=== PATIENT | female | born 1970 | race African-American/Black ===

== ENCOUNTER 2020-01-17 14:44 | Observation (INO) ==
[2020-01-17] MEDS ORDERED: Aspirin 81 MG TAB.CHEW PO ONE (14:52)
[2020-01-17] MEDS ORDERED: Nitroglycerin 0.4 MG TAB.SUBL SL PRN (14:52)
[2020-01-17 15:54] LABS: Basophils % 0.2 %; Eosinophils # 0.1 K/mcL (0.0-0.6); Eosinophils % 0.4 %; Hematocrit 37.6 % (35.3-44.9); Hemoglobin 11.6 g/dL (11.5-15.4); Immature Granulocytes % 0.5 % (0-4); Lymphocytes # 4.9 K/mcL (0.6-4.6); Lymphocytes % 33.1 %; Mean Corpuscular HGB Conc 30.9 g/dL (31.6-35.5); Mean Corpuscular Volume 97.2 fL (83.0-100.0); Mean Platelet Volume 10.8 fL (9.4-12.4); Monocytes # 0.4 K/mcL (0.0-1.3); Monocytes % 2.7 %; Neutrophils # 9.3 K/mcL (1.6-8.9); Platelet Count 225 K/mcL (140-400); Red Blood Count 3.87 M/mcL (3.82-4.97); Red Cell Distribution Width 13.9 % (11.5-14.5); Segmented Neutrophils % 63.1 %; White Blood Count 14.7 K/mcL (4.3-11.1)
[2020-01-17 15:58] LABS: INR 0.9; Prothrombin Time 10.2 Seconds (9.4-12.1)
[2020-01-17 16:01] LABS: Activated Partial Thrombo Time 26.3 Seconds (26.0-36.0)
[2020-01-17 16:15] LABS: BUN/Creatinine Ratio 10 (6-26); Blood Urea Nitrogen 9 mg/dL (6-20); Calcium 9.7 mg/dL (8.6-10.3); Carbon Dioxide 23 mEq/L (23-29); Chloride 110 mEq/L (98-107); Glucose 94 mg/dL (70-105); Osmolality,Calculated 290 (280-300); Potassium 3.8 mEq/L (3.5-5.1); Sodium 141 mEq/L (136-145); eGFR For African Americans > 60 (> 60); eGFR For Non-African Americans > 60 (> 60)
[2020-01-17 16:16] LABS: Troponin I < 0.03 ng/mL (< 0.04)
[2020-01-17] MEDS ORDERED: Lidocaine 1% 20 ML MDV INFILT ONE (17:11)
[2020-01-17] MEDS ORDERED: Naloxone 0.4 MG/ML INJ IVP PRN (17:21)
[2020-01-17] MEDS ORDERED: Ondansetron ODT 4 MG TAB.RAPDIS SL PRN (17:21)
[2020-01-17 17:48] LABS: Magnesium 1.9 mg/dL (1.6-2.6)
[2020-01-17] MEDS ORDERED: Promethazine Syrup 6.25 MG/5 ML PO PRN (18:45)
[2020-01-17] MEDS: ALPRAZolam 1 MG TABLET PO SCH (19:48)
[2020-01-17] MEDS: *HR* OxyCODONE Immed Rel 5 MG TABLET PO PRN (19:49)
[2020-01-17] MEDS ORDERED: Lidocaine Jelly 6ml 1 APPL/6 ML JEL.PF.APP TP ONE (22:11)
[2020-01-18] MEDS: *HR* Heparin 5,000 UNIT/ML VIAL SQ SCH ×2 (05:28→17:59)
[2020-01-18 05:56] LABS: Hematocrit 34.6 % (35.3-44.9); Hemoglobin 10.9 g/dL (11.5-15.4); Mean Corpuscular HGB Conc 31.5 g/dL (31.6-35.5); Mean Corpuscular Hemoglobin 30.5 pg (28.0-33.3); Mean Corpuscular Volume 96.9 fL (83.0-100.0); Mean Platelet Volume 10.5 fL (9.4-12.4); Platelet Count 220 K/mcL (140-400); Red Blood Count 3.57 M/mcL (3.82-4.97); White Blood Count 12.2 K/mcL (4.3-11.1)
[2020-01-18 06:17] LABS: BUN/Creatinine Ratio 20 (6-26); Blood Urea Nitrogen 16 mg/dL (6-20); Calcium 9.1 mg/dL (8.6-10.3); Carbon Dioxide 25 mEq/L (23-29); Chloride 110 mEq/L (98-107); Glucose 96 mg/dL (70-105); Osmolality,Calculated 289 (280-300); Potassium 4.1 mEq/L (3.5-5.1); Sodium 139 mEq/L (136-145); eGFR For African Americans > 60 (> 60); eGFR For Non-African Americans > 60 (> 60)
[2020-01-18] MEDS ORDERED: Regadenoson 0.4 MG/5 ML SYRINGE IVP ONE (07:45)
[2020-01-18] MEDS: *HR* OxyCODONE Immed Rel 5 MG TABLET PO PRN ×2 (11:27→20:29)
[2020-01-18] MEDS: Aspirin 81 MG TAB.CHEW PO SCH (11:27)
[2020-01-18] MEDS: ALPRAZolam 1 MG TABLET PO SCH ×2 (11:27→20:29)
[2020-01-19] MEDS: *HR* Heparin 5,000 UNIT/ML VIAL SQ SCH (05:25)
[2020-01-19 07:45] VITALS: BP 93/58
[2020-01-19 08:15] LABS: Basophils % 0.4 %; Eosinophils # 0.2 K/mcL (0.0-0.6); Eosinophils % 2.3 %; Hematocrit 35.4 % (35.3-44.9); Hemoglobin 11.3 g/dL (11.5-15.4); Immature Granulocytes % 0.3 % (0-4); Lymphocytes # 3.8 K/mcL (0.6-4.6); Lymphocytes % 38.7 %; Mean Corpuscular HGB Conc 31.9 g/dL (31.6-35.5); Mean Corpuscular Hemoglobin 30.9 pg (28.0-33.3); Mean Corpuscular Volume 96.7 fL (83.0-100.0); Mean Platelet Volume 10.4 fL (9.4-12.4); Monocytes # 0.4 K/mcL (0.0-1.3); Monocytes % 4.4 %; Neutrophils # 5.2 K/mcL (1.6-8.9); Platelet Count 228 K/mcL (140-400); Red Blood Count 3.66 M/mcL (3.82-4.97); Red Cell Distribution Width 14.1 % (11.5-14.5); Segmented Neutrophils % 53.9 %; White Blood Count 9.7 K/mcL (4.3-11.1)
[2020-01-19] MEDS: ALPRAZolam 1 MG TABLET PO SCH (09:09)
[2020-01-19] MEDS: Aspirin 81 MG TAB.CHEW PO SCH (09:09)
== END 2020-01-19 15:32 | disposition home or self-care (01) ==
LOC: 3BNU 14:44 → EMEROOARM 14:44 → SUATTDRO 16:58 → 3BNU 17:55
PROVIDERS: ADMIT Family Medicine; ATTEND Family Medicine